=== PATIENT | male | born 1970 | race Caucasian/White ===

== ENCOUNTER → 2016-10-04 | Outpatient (CLI) | payer MEDICARE, MEDICAID, SELFPAY | PROVIDERS: PCP Registered Nurse; Visit Provider Family Medicine Sleep Medicine | DX: G47.33 Obstructive sleep apnea (adult) (pediatric) (principal); F51.01 Primary insomnia; G47.10 Hypersomnia, unspecified | CPT/HCPCS: 1036F; 99213; G8417; G8427; G8430 ==

== ENCOUNTER → 2017-11-13 11:58 | Outpatient (CLI) | payer MEDICARE, SELFPAY ==
--- NOTE | 2017-11-13 | DI.MRI.S_ITS ---
PROCEDURE: MR LUMBAR SPINE WO CON INDICATIONS: LUMBAGO TECHNIQUE: Noncontrast sagittal T1 spin echo and T2 fast echo, sagittal STIR, axial T1 and T2 fast spin echo through the lumbar spine. In cases with scoliosis, additional coronal T2 fast spin echo may be performed. COMPARISON: None. FINDINGS: Image quality: Excellent. Alignment and Curvature: There is normal bony alignment. Bone Marrow: Mild degenerative endplate signal changes scattered in lumbar spine. No acute vertebral body compression fractures. Spinal Cord: Conus medullaris terminates at the L1 level. Visualized cord demonstrates normal signal and size. Paraspinous Soft Tissues: No paravertebral masses. L1-L2: Mild loss of disc height and disc desiccation. There is mild posterior disc bulge. Moderate bilateral facet arthropathy. The central canal is patent. No foraminal stenosis. L2-L3: Moderate loss of disc height and disc desiccation. There is diffuse posterior disc bulge and disc osteophyte complex. Superimposed posterior central disc protrusion. Moderate bilateral facet arthropathy mild hypertrophy of ligamentum flavum. The central canal is moderately narrowed. There is moderate right and mild left foraminal stenosis. L3-L4: Mild to moderate loss of disc height and disc desiccation. There is diffuse posterior disc bulge and disc osteophyte complex. Superimposed left posterior paramedian disc protrusion. Moderate bilateral facet arthropathy mild hypertrophy of ligamentum flavum. The central canal is severely narrowed. Severe narrowing of the left lateral recess and imaging posterior protruding disc. There is moderate bilateral foraminal stenosis. L4-L5: Moderate loss of disc height and disc desiccation. There is diffuse posterior disc bulge and disc osteophyte complex. Moderate bilateral facet arthropathy. The central canal is moderately narrowed. There is moderate bilateral foraminal stenosis. L5-S1: Mild loss of disc height and moderate disc desiccation. There is diffuse posterior disc bulge and disc osteophyte complex. Moderate bilateral facet arthropathy. The central canal is minimally narrowed. There is moderate left and mild right foraminal stenosis. IMPRESSION: 1. Multilevel degenerative disc disease and facet arthropathy as described. 2. Severe central canal stenosis at L3-L4, and moderate central canal stenosis at L2-L3 and L4-L5. 3. Multilevel foraminal stenosis as described. 4. Severe narrowing of the left L3-L4 lateral recess secondary to protruding disc. Dictated by: Reji Sanchez M.D. on 11/13/2017 at 13:46 Approved by: Reji Sanchez M.D. on 11/14/2017 at 10:04
== END ==
PROVIDERS: PCP Registered Nurse; Visit Provider Registered Nurse
DX: M51.36 Other intervertebral disc degeneration, lumbar region (principal); M51.37 Other intervertebral disc degeneration, lumbosacral region; M47.816 Spondylosis without myelopathy or radiculopathy, lumbar region; M47.817 Spondylosis without myelopathy or radiculopathy, lumbosacral region; M48.061 Spinal stenosis, lumbar region without neurogenic claudication; M48.07 Spinal stenosis, lumbosacral region; M51.26 Other intervertebral disc displacement, lumbar region
CPT/HCPCS: 72148

== ENCOUNTER 2018-05-07 19:15 | Emergency (ER) | payer MEDICARE, SELFPAY ==
[2018-05-07 19:26] VITALS: BP 144/79; PULSE 81; RESP 20; O2SAT 95
--- NOTE | 2018-05-07 19:30 | ED.WOUNDLAC ---
HPI - Wound/Laceration General Chief Complaint: Wound/Laceration Stated Complaint: FELL & HIT HEAD ON A ROCK Time Seen by Provider: 05/07/18 19:30 Source: patient Mode of arrival: ambulatory Limitations: no limitations History of Present Illness HPI narrative: 47-year-old male here for evaluation of a laceration to his head and also left knee pain. Patient has had multiple surgeries on his left knee to include a knee replacement secondary to cancer. He is not currently undergoing any treatment. He states that when his knee becomes torqued he feels like that it is going to cause damage in so he sometimes loses his balance. He states that this happened to him today and he fell back hitting his head on the ground. Not on blood thinners. No loss of consciousness. He is up-to-date on tetanus. Related Data Allergies Allergy/AdvReac Type Severity Reaction Status Date / Time Penicillins [PENICILLINS] Allergy Unknown Unverified 05/30/17 12:15 Review of Systems Constitutional Denies fever(s), Denies frequent falls and Denies headache(s) Eyes Denies blurry vision ENT Ears, Nose, Mouth, and Throat: Denies vertigo, Denies headache(s) and Denies disequilibrium Cardiovascular Denies dyspnea Respiratory Denies dyspnea Gastrointestinal Gastrointestinal: Denies abdominal pain Musculoskeletal Comments: Left knee pain Integumentary/Breasts Comments: Cut to scalp Neurologic Denies confusion, Denies vertigo, Denies frequent falls, Denies headache(s), Denies memory loss and Denies disequilibrium Psychiatric Denies confusion and Denies memory loss Hematologic/Lymphatic Denies easy bleeding and Denies easy bruising PFSH Social History marital status: Smoking Status: Never smoker well-balanced diet: daily or most days daily servings fruits/ve or more times/day Type(s) of exercise: aerobic, regular exercise, swimming, weight lifting and resistance training frequency: 5-6 times per week Exam Initial Vital Signs Initial Vital Signs: Vital Signs Pulse Rate 81 05/07/18 19:26 Respiratory Rate 20 05/07/18 19:26 Blood Pressure 144/79 H 05/07/18 19:26 Pulse Oximetry 95 05/07/18 19:26 Const General: cooperative, comfortable, well developed, well groomed and No acute distress Orientation: alert, awake and oriented x3 HENMT Head: normal to inspection and normocephalic Resp Effort & Inspection: normal respiratory effort Auscultation: clear to auscultation bilaterally Cardio Rate: regular rate Rhythm: regular rhythm GI Inspection: non-distended Palpation: soft and No tender Back/Spine/Pelvis Cervical Spine: No cervical spinal tenderness Skin Other: Patient with a 3 cm laceration to the right temporal/parietal aspect of his scalp. No active Neuro General: alert, awake and oriented x3 Cognition: normal cognition Speech: speech normal Gait: normal gait Motor: muscle tone normal throughout Sensory Exam: no sensory deficits noted Extrem Other: Tenderness to palpation the left knee however has normal range of motion Psych Appearance: grossly normal and well kempt Procedures Laceration Repair Laceration 1: Site: scalp Size (cm): 3 Description: linear Depth: simple, single layer Local Anesthetic: lidocaine 1% and with epi Amount of anesthesia used (mL): 6 Pre-repair: wound explored, irrigated extensively and deep structures intact Skin layer closed with: lisbeth Number of sutures: 7 Technique: simple, interrupted Scores GCS Jorge coma scale eye opening: Spontaneous [place] coma scale verbal response: Orientated [place] coma scale motor response: Obey commands [place] coma scale total score: 15 Nexus Score for C-Spine Focal Neurologic deficit present: No Midline spinal tenderness present: No Altered level of conciousness present: No Intoxication present: No Distracting Injury Present: No Nexus Criteria for C-spine: 0 Course Orders Ordered: ED Orders 05/07/18 20:00 XR tibia fibula LT 2V Stat Vital Signs - 8 hr 05/07/18 19:26 Pulse Rate 81 Respiratory Rate 20 Blood Pressure 144/79 H Pulse Oximetry 95 MDM - Wound/Laceration Imaging Data X-ray knee: Radiologist's impression: [address] [place] [id number] XRay Report Signed Patient: Carl David [facility]#: [id number] : 1970Acct:[id number] Age/Sex: 47 / MDate of Service: 05/07/18 Loc: ED Accession Number: [id number] Procedure: XR tibia fibula LT 2V Ordering Provider: Pablo Aponte D.O. PROCEDURE: XR TIBIA FIBULA RT 2V INDICATIONS: pain after fall TECHNIQUE: 2 views of the tibia and fibula were acquired. COMPARISON: None. FINDINGS: Bones: Patient is status post left total knee arthroplasty. Extensive glue is present within the superior tibia no definite fracture visualized. No lucency to suggest hardware loosening. Soft tissues: A radiopaque foreign bodies are present within the soft tissues adjacent to the medial aspect of the proximal tibia. IMPRESSION: No definite fracture, dislocation, or hardware loosening. If further characterization is warranted, CT may be helpful. Dictated by: Lillie De Anda M.D. on 05/07/2018 at 20:31 Approved by: Lillie De Anda M.D. on 05/07/2018 at 20:33 [facility] Narrative Medical decision making narrative: No fractures on the x-ray. His scalp was closed with stitches as described above. No indication for antibiotics. He is up-to-date on tetanus. He was given care instructions with regard to the laceration. He was given return precautions. He expressed understanding and agreement with plan. Discharge Plan Departure Patient Disposition: Home Clinical Impression: Laceration Instructions: How to Care for a Laceration After Repair, DI for Laceration Repair Activity Restrictions/Additional Instructions: The lisbeth to need to be removed in 10 days. You can shower like normal. He can use soap and water like normal. Contact your primary care doctor for follow-up. Return to the emergency department for any new or worsening symptoms Referrals: Puma Beard ARNP [Primary Care Provider] -
--- NOTE | 2018-05-07 20:00 | DI.RAD.S_ITS ---
PROCEDURE: XR TIBIA FIBULA RT 2V INDICATIONS: pain after fall TECHNIQUE: 2 views of the tibia and fibula were acquired. COMPARISON: None. FINDINGS: Bones: Patient is status post left total knee arthroplasty. Extensive glue is present within the superior tibia no definite fracture visualized. No lucency to suggest hardware loosening. Soft tissues: A radiopaque foreign bodies are present within the soft tissues adjacent to the medial aspect of the proximal tibia. IMPRESSION: No definite fracture, dislocation, or hardware loosening. If further characterization is warranted, CT may be helpful. Dictated by: Lillie De Anda M.D. on 05/07/2018 at 20:31 Approved by: Lillie De Anda M.D. on 05/07/2018 at 20:33
== END 2018-05-07 20:53 | disposition home or self-care (01) ==
PROVIDERS: Emergency Provider Emergency Medicine; Family Provider Registered Nurse; PCP Registered Nurse
DX: S01.01XA Laceration without foreign body of scalp, initial encounter (principal); M25.562 Pain in left knee; W18.30XA Fall on same level, unspecified, initial encounter
CPT/HCPCS: 12002; 73590; 99283

== ENCOUNTER → 2019-09-15 16:41 | Outpatient (CLI) | payer MEDICARE, SELFPAY ==
--- NOTE | 2019-09-15 | DI.MRI.S_ITS ---
PROCEDURE: MR KNEE RT WO/W CON INDICATIONS: BENIGN NEOPLASM OF LONG BONES. RIGHT KNEE PAIN AND LOCKING TECHNIQUE: Noncontrast sagittal PD fast spin echo and T2 fast spin echo with fat saturation, sagittal 3-D FLASH with fat saturation; coronal T1 spin echo and PD fast spin echo with fat saturation, and axial T1 spin echo and PD fast spin echo with fat saturation through the knee. Post-contrast axial, coronal, and sagittal T1 spin echo with fat saturation through the knee. COMPARISON: None. FINDINGS: Image quality: Excellent. Menisci: Medial and lateral meniscal extrusions. There is truncation of the lateral meniscus with absence of the posterior horn and body, probably related to prior meniscectomy. There is horizontal tear of the posterior horn and body of the medial meniscus. Cruciate ligaments: There is anterior cruciate ligament repair. The anterior cruciate ligament graft demonstrates expected postsurgical change without definitive tear. There is no bowing of the graft to suggest impingement. The tibial tunnel demonstrates cyst formation proximally. The posterior cruciate ligaments appear intact. Medial structures: The medial collateral ligament appears intact. The semimembranosus tendon insertions and meniscocapsular junction appear intact. Visualized portions of the pes anserinus tendons appear normal. No abnormal bursal fluid. Lateral structures: The lateral collateral ligament, long and short heads of the biceps femoris tendon appear intact. The popliteus tendon appears normal. Iliotibial band appears normal. Anterior structures: The quadriceps and patellar tendons appear intact. Patellar alignment is normal. No femoral trochlear dysplasia or ventral trochlear prominence. No edema in the infrapatellar fat pad. Bones and cartilage: No suspicious osseous enhancement. No bone marrow contusions or fractures. There is tricompartmental cartilage thinning, most pronounced in the medial femorotibial compartment with denuded articular surface. Full-thickness cartilage fissures are also present in the lateral femorotibial compartment and patellofemoral compartment. Joint space: There is small knee joint effusion. No Chowdary's cyst. Normal appearing synovial plicae are incidentally noted. No suspicious soft tissue enhancement. IMPRESSION: 1. Status post anterior cruciate ligament repair with intact ACL graft. There is cyst formation in the tibial tunnel. 2. Truncation of the lateral meniscus with absence of the body and posterior horn, presumably related to meniscectomy. 3. Horizontal tear of the body and posterior horn of the medial meniscus. 4. Tricompartmental cartilage loss and degeneration, most severe in the medial femorotibial compartment. Denuded articular surface of the medial femoral condyle is noted. 5. Small knee joint effusion. Dictated by: Reji Sanchez M.D. on 09/16/2019 at 10:56 Transcribed by: RYAN on 09/16/2019 at 21:56 Approved by: Reji Sanchez M.D. on 09/17/2019 at 9:32
== END ==
PROVIDERS: Family Provider Registered Nurse; PCP Registered Nurse; Referring Provider Physician Assistant Medical; Visit Provider Physician Assistant Medical
DX: D16.21 Benign neoplasm of long bones of right lower limb (principal); S83.241A Other tear of medial meniscus, current injury, right knee, initial encounter; M17.11 Unilateral primary osteoarthritis, right knee; M25.561 Pain in right knee; M25.461 Effusion, right knee
CPT/HCPCS: 73723; A9579

== ENCOUNTER → 2021-01-07 12:52 | Outpatient (CLI) | payer MEDICARE, SELFPAY ==
[2021-01-07] MEDS: COVID-19 VACC #3, MRNA(MOD) 50 MCG/0.25 ML VIAL IM (12:57)
== END ==
PROVIDERS: Family Provider Registered Nurse; PCP Student in an Organized Health Care Education/Training Program; Visit Provider Internal Medicine
DX: Z23 Encounter for immunization (principal)
CPT/HCPCS: 0013A; 91301

== ENCOUNTER → 2022-06-28 07:21 | Outpatient (CLI) | payer MEDICARE, SELFPAY ==
--- NOTE | 2022-06-28 | DI.US.S_ITS ---
PROCEDURE: US SOFT TISSUE HEAD AND NECK INDICATIONS: ENLARGED LYMPH NODES/NEW MASSES TECHNIQUE: Real-time scanning was performed of the neck region of interest, with image documentation. Additional imaging through bilateral groin was also performed. COMPARISON: [facility], , SOFT TISSUE HEAD OR NECK, 08/30/2016, 16:12. FINDINGS: Right neck: Multiple (more than 8) enlarged lymph nodes are again seen in right neck soft tissue behind right ear measures up to 4 x 2.1 x 2.9 cm in size. Left groin: More than 6 enlarged lymph nodes are seen in left inguinal region measures up to 5 x 2.8 x 1.5 cm in size. Right groin: more than 5 enlarged lymph nodes are noted in right inguinal region measures up to 4.1 x 2 x 0.9 cm in size. IMPRESSION: Enlarged and hypervascular lymph nodes in right neck soft tissue and bilateral inguinal region as above concerning for systemic process such as lymphoma or reactive inflammatory nodes. Clinical correlation is recommended. Dictated by: Pedro Solomon M.D. on 06/28/2022 at 13:53 Approved by: Pedro Solomon M.D. on 06/28/2022 at 14:00
== END ==
PROVIDERS: Family Provider Registered Nurse; PCP Student in an Organized Health Care Education/Training Program; Referring Provider Registered Nurse; Visit Provider Registered Nurse
DX: R59.1 Generalized enlarged lymph nodes (principal)
CPT/HCPCS: 76536

== ENCOUNTER → 2023-09-15 09:23 | Outpatient (CLI) | payer MEDICARE, SELFPAY ==
--- NOTE | 2023-09-15 | DI.MRI.S_ITS ---
PROCEDURE: MR LUMBAR SPINE WO CON INDICATIONS: SPONDYLOSIS W RADICULOPATHY LUMBAR REGION TECHNIQUE: Noncontrast sagittal T1 spin echo and T2 fast echo, sagittal STIR, and T2 fast spin echo through the lumbar spine. In cases with scoliosis, additional coronal T2 fast spin echo may be performed. COMPARISON: [facility], MR, MR LUMBAR SPINE WO CON, 11/13/2017, 12:47. FINDINGS: Image quality: Excellent. Alignment and Curvature: Similar minimal retrolisthesis of L5 on S1. There is straightening of lumbar lordosis. Bone Marrow: Marrow is of normal overall signal. No acute vertebral body compression fractures. Spinal Cord: Conus medullaris terminates at the L1 level. Visualized cord demonstrates normal signal and size. Intervertebral discs: Multilevel disc height loss and disc desiccation Paraspinous Soft Tissues: No paravertebral masses. T12-L1: No spinal canal stenosis. No significant foraminal stenosis. There is bilateral facet arthropathy and ligamentum flavum hypertrophy. L1-L2: No spinal canal stenosis. No significant foraminal stenosis. There is bilateral facet arthropathy and ligamentum flavum hypertrophy. L2-L3: Dorsal disc bulge mildly effaces the ventral thecal sac. Similar srts-[id number] bilateral foraminal stenosis. Bilateral facet arthropathy and ligamentum flavum hypertrophy. L3-L4: Previously visualized left subarticular disc extrusion is no longer present. Moderate left foraminal stenosis, improved from prior exam. Similar moderate right foraminal stenosis. There is bilateral facet arthropathy and ligamentum flavum hypertrophy. L4-L5: Similar dorsal disc bulge with corresponding annular tear mildly effaces the ventral thecal sac. Similar moderate to severe left foraminal stenosis. Similar moderate right foraminal stenosis. There is bilateral facet arthropathy and ligamentum flavum hypertrophy. L5-S1: Dorsal disc bulge mildly effaces the ventral thecal sac. Similar moderate right foraminal stenosis and severe left foraminal stenosis. There is bilateral facet arthropathy and mild ligamentum flavum hypertrophy. IMPRESSION: 1. When compared to prior MRI of the lumbar spine dated 11/13/2017, previously visualized left subarticular disc extrusion at L3-L4 is no longer present. There has also been interval improvement of left foraminal stenosis at L3-L4. 2. Otherwise, no significant interval change in multilevel degenerative disc disease as described above. 3. Similar minimal retrolisthesis of L5 on S1. Dictated by: Marcello Alchammas, M.D. on 09/17/2023 at 8:49 Approved by: Marcello Valdez M.D. on 09/17/2023 at 9:24
== END ==
PROVIDERS: Family Provider Registered Nurse; PCP Registered Nurse; Referring Provider Registered Nurse; Visit Provider Registered Nurse
DX: M47.26 Other spondylosis with radiculopathy, lumbar region (principal); M47.27 Other spondylosis with radiculopathy, lumbosacral region; M51.16 Intervertebral disc disorders with radiculopathy, lumbar region; M51.17 Intervertebral disc disorders with radiculopathy, lumbosacral region; M48.061 Spinal stenosis, lumbar region without neurogenic claudication; M48.07 Spinal stenosis, lumbosacral region
CPT/HCPCS: 72148

== ENCOUNTER 2024-08-12 15:20 | Emergency (ER) | payer MEDICARE, MEDICAID, SELFPAY ==
[2024-08-12 15:37] VITALS: BP 183/98; PULSE 90; RESP 14; TEMP 36.9; O2SAT 95; BMI 39.3
--- NOTE | 2024-08-12 15:43 | DI.RAD.S_ITS ---
PROCEDURE: XR SHOULDER LT MIN 2V INDICATIONS: pain TECHNIQUE: 3 views of the shoulder were acquired. COMPARISON: None. FINDINGS: Bones: No fractures or dislocations. No suspicious bony lesions. Visualized ribs appear intact. Inferior subluxation of the humerus. Bulky calcification above the greater tuberosity. Soft tissues: No suspicious soft tissue calcifications. IMPRESSION: Inferior subluxation of the humeral head, suggestive of a large joint effusion. Bulky calcification above the greater tuberosity, probably calcific tendinopathy of the supraspinatus tendon. Dictated by: Maximiliano Burgess M.D. on 08/12/2024 at 16:08 Approved by: Maximiliano Burgess M.D. on 08/12/2024 at 16:09
--- NOTE | 2024-08-12 16:23 | ED_ITS ---
HPI - Extremity Problem <Shasha Sanchez PA-C - Last Filed: 08/12/24 18:54> General Chief complaint: Extremity Problem,Nontraumatic Stated complaint: L [place] Pain Time Seen by Provider: 08/12/24 15:49 Source: patient Mode of arrival: Ambulatory History of Present Illness HPI Narrative: 53-year-old male presents to the ED with 2 weeks of worsening left-sided shoulder pain. Patient states that his shoulder has been painful over the last 6 months, 3 weeks ago he did some kayaking, a week after which his left shoulder pain acutely worsened. No other trauma. No numbness, tingling, weakness. No fever, chills. Patient has tried taking Tylenol and ibuprofen with no relief. Patient reports 9/10 pain. Related Data Previous Rx's ?Medication ?Instructions ?Recorded oxycodone-acetaminophen 5 mg-325 1 tab PO Q4-6H PRN pa in #14 tabs 08/12/24 mg tablet (Endocet) Allergies Allergy/AdvReac Type Severity Reaction Status Date / Time Penicillins (PENICILLINS) Allergy Unknown Unverified 08/12/24 16:57 Review of Systems <Shasha Sanchez PA-C - Last Filed: 08/12/24 18:54> Constitutional Constitutional: Denies chills, Denies fatigue, Denies fever(s), Denies frequent falls, Denies lethargy and Denies weakness Eyes Eyes: Denies change in vision, Denies eye discharge, Denies irritation and Denies loss of vision ENT Ears, Nose, Mouth, and Throat: Denies change in voice, Denies dizziness, Denies neck pain, Denies sore throat and Denies throat swelling Cardiovascular Cardiovascular: Denies chest pain, Denies irregular heart rhythm, Denies lightheadedness, Denies palpitations, Denies dyspnea, Denies dyspnea on exertion and Denies orthopnea Respiratory Respiratory: Denies cough, Denies dyspnea, Denies dyspnea on exertion and Denies wheezing Gastrointestinal Gastrointestinal: Denies abdominal pain, Denies change in bowel habits, Denies diarrhea, Denies nausea and Denies vomiting Musculoskeletal Musculoskeletal: Denies neck pain and Denies numbness Comments: Left shoulder pain Integumentary/Breasts Skin/Breast: Denies pruritus, Denies erythema, Denies rash and Denies wounds Neurologic Neurologic: Denies behavioral changes, Denies confusion, Denies dizziness, Denies frequent falls, Denies loss of vision, Denies numbness and Denies weakness Psychiatric Psychiatric: Denies anxiety, Denies behavioral changes, Denies confusion, Denies depression, Denies homicidal ideation and Denies suicidal ideation Endocrine Endocrine: Denies fatigue, Denies flushing and Denies palpitations Hematologic/Lymphatic Hematologic/Lymphatic: Denies easy bruising Allergic/Immunologic Allergic/Immunologic: Denies urticaria, Denies throat swelling and Denies wheezing Patient History <Shasha Sanchez PA-C - Last Filed: 08/12/24 18:54> Medical History (Updated 08/12/24 @ 16:44 by Shasha Sanchez PA-C) Morbid obesity with body mass index (BMI) greater than or equal to 50 Idiopathic acute pancreatitis Allergic rhinitis Hypothyroidism Hypogonadism HTN (hypertension), benign Hyperlipidemia Excessive daytime sleepiness Insomnia, persistent Obstructive sleep apnea of adult Snoring Social History marital status: Smoking Status: Never smoker well-balanced diet: daily or most days daily servings fruits/ve or more times/day Type(s) of exercise: aerobic, regular exercise, swimming, weight lifting and resistance training frequency: 5-6 times per week Smoking Status: Never smoker Alcohol type: beer Exam <Shasha Sanchez PA-C - Last Filed: 08/12/24 18:54> Narrative Exam Narrative: Const General:?cooperative, healthy appearing and comfortable [facility] Head:?normal to inspection Ears:?hearing grossly normal bilaterally Nose:?external nose normal Face and sinus:?normal facial exam and sinuses nontender Mouth:?oral mucosae normal Throat:?posterior oropharynx normal Eyes General:?appearance normal, both eyes and all related structures Neck Neck:?normal visual inspection and no lymphadenopathy noted Resp Effort & Inspection:?normal respiratory effort Auscultation:?clear to auscultation bilaterally Cardio Rate:?regular rate Rhythm:?regular rhythm Musculoskeletal There is tenderness to palpation of the anterior shoulder. No erythema, deformities. Range of motion severely limited by pain. Neurovascularly intact. Neuro General:?patient alert, patient awake and patient oriented x3 Initial Vital Signs Initial Vital Signs: Vital Signs Temperature 98.4 F 08/12/24 15:37 Pulse Rate 90 08/12/24 15:37 Respiratory Rate 14 06/24/25 15:37 Blood Pressure 183/98 H 08/12/24 15:37 Pulse Oximetry 95 08/12/24 15:37 Oxygen Delivery Method Room Air 08/12/24 15:37 <Marlee Huber MD - Last Filed: 08/14/24 07:45> Initial Vital Signs Initial Vital Signs: Vital Signs Temperature 98.4 F 08/12/24 15:37 Pulse Rate 90 08/12/24 15:37 Respiratory Rate 14 08/12/24 15:37 Blood Pressure 183/98 H 08/12/24 15:37 Pulse Oximetry 95 08/12/24 15:37 Oxygen Delivery Method Room Air 08/12/24 15:37 Course <Shasha Sanchez PA-C - Last Filed: 08/12/24 18:54> Orders Ordered: Discontinued Medications Ketorolac Tromethamine (Ketorolac 30 Mg/Ml Vial) 30 mg IM NOW ONE Stop: 08/12/24 16:42 Last Admin: 08/12/24 17:01 Dose: 30 mg Documented By: BT Oxycodone/Acetaminophen (Oxycodone/Acetaminophen 5/325 Tablet) 1 tab PO NOW ONE Stop: 08/12/24 16:42 Last Admin: 08/12/24 17:02 Dose: 1 tab Documented By: BT Vital Signs Vital signs: Vital Signs - 8 hr 08/12/24 15:37 08/12/24 17:20 Temperature 98.4 F Pulse Rate 90 88 Respiratory Rate 14 15 Blood Pressure 183/98 H 175/92 H Pulse Oximetry 95 98 Oxygen Delivery Method Room Air <Marlee Huber MD - Last Filed: 08/14/24 07:45> Orders Ordered: Discontinued Medications Ketorolac Tromethamine (Ketorolac 30 Mg/Ml Vial) 30 mg IM NOW ONE Stop: 08/12/24 16:42 Last Admin: 08/12/24 17:01 Dose: 30 mg Documented By: BT Oxycodone/Acetaminophen (Oxycodone/Acetaminophen 5/325 Tablet) 1 tab PO NOW ONE Stop: 08/12/24 16:42 Last Admin: 08/12/24 17:02 Dose: 1 tab Documented By: BT Vital Signs Vital signs: Vital Signs - 8 hr 08/12/24 15:37 08/12/24 17:20 Temperature 98.4 F Pulse Rate 90 88 Respiratory Rate 14 15 Blood Pressure 183/98 H 175/92 H Pulse Oximetry 95 98 Oxygen Delivery Method Room Air MDM - Extremity (Nontraumatic) <Shasha Sanchez PA-C - Last Filed: 08/12/24 18:54> MDM Narrative Medical decision making narrative: 53-year-old male presents to the ED with 2 weeks of worsening left-sided shoulder pain. X-ray was obtained which shows an inferior subluxation of the humeral head, suggestive of a large joint effusion. Bulky calcification above the greater tuberosity, probably calcific tendinopathy of the supraspinatus tendon. Discussed findings with patient. Patient's symptoms improved with Toradol and Percocet. Patient was provided a sling for comfort. It is reassuring to note that patient has a PCP appointment for tomorrow. Recommend that patient follow-up with his PCP and that he might benefit from a steroid injection. Patient prescribed pain medications. ED return precautions discussed with patient. Patient verbalized understanding. Medical records reviewed: Yes Discharge Plan Departure Patient Disposition: Home Clinical Impression: Acute shoulder pain Qualifiers: Laterality: left Qualified Code(s): M25.512 - Pain in left shoulder Instructions: DI for Calcific Tendonitis of the Shoulder Activity Restrictions/Additional Instructions: You were evaluated in the ED today for left-sided shoulder pain. The x-ray shows calcific tendinopathy which is likely contributing to your symptoms. It is also possible that you have some rotator cuff injuries from the kayaking. You were given a dose of Toradol and Percocet in the ED today for pain. It is reassuring that you have a appointment with your PCP tomorrow. Please follow-up with ortho since you might benefit from corticosteroid injections. Return to the ED if you have worsening symptoms, numbness, tingling, weakness. Prescriptions: New oxycodone-acetaminophen [Endocet] 5-325 mg tablet 1 tab PO Q4-6H PRN (Reason: pain) Qty: 14 0RF Referrals: Puma Beard ARNP [Primary Care Provider, Naturopathy] Stand Alone Forms: Patient Portal/API ED Sign-out <Marlee Huber MD - Last Filed: 08/14/24 07:45> Cosign ED Attending Cosignature Attestation: I was immediately available in the department for consultation throughout this patient's visit. Marlee Huber MD
[2024-08-12] MEDS: KETOROLAC 30 MG/ML VIAL IM (17:01)
[2024-08-12] MEDS: OXYCODONE/ACETAMINOPHEN 5/325 TABLET 1 TAB PO (17:02)
[2024-08-12 17:20] VITALS: BP 175/92; PULSE 88; RESP 15; O2SAT 98
== END 2024-08-12 17:23 | disposition home or self-care (01) ==
PROVIDERS: Emergency Provider Student in an Organized Health Care Education/Training Program; Family Provider Registered Nurse; PCP Registered Nurse
DX: M25.512 Pain in left shoulder (principal)
CPT/HCPCS: 73030; 96372; 99283; J1885